=== PATIENT | female | born 1950 | race Caucasian/White ===

== ENCOUNTER → 2016-06-16 | Outpatient (CLI) | payer MEDICARE, BC ==
--- NOTE | 2016-06-19 11:56 | MM ---
Reason for exam: screening (asymptomatic). Last mammogram was performed 1 year and 4 months ago. History: Patient is postmenopausal and has history of other cancer at age 49. Took hormonal contraceptives for 7 years. Physical Findings: A clinical breast exam by your physician is recommended on an annual basis and results should be correlated with mammographic findings. MG 3D Screening Mammo W/Cad Bilateral CC and MLO view(s) were taken. Prior study comparison: March 01, 2015, bilateral MG 3d screening mammo w/cad. January 13, 2014, bilateral MG screening mammo w CAD. December 20, 2012, bilateral digital screening mammo w/CAD. The breast tissue is heterogeneously dense. This may lower the sensitivity of mammography. There is no discrete abnormality. ASSESSMENT: Negative, BI-RAD 1 RECOMMENDATION: Routine screening mammogram of both breasts in 1 year.
== END | disposition home or self-care (01) ==
LOC: RADMAMWWP 10:05
PROVIDERS: ATTEND Internal Medicine Geriatric Medicine
DX: Z12.31 Encounter for screening mammogram for malignant neoplasm of breast (principal)
CPT/HCPCS: 77063; G0202

== ENCOUNTER → 2018-03-14 | Outpatient (CLI) | payer MEDICARE, BC ==
--- NOTE | 2018-03-14 12:00 | BD ---
EXAMINATION TYPE: Axial Bone Density DATE OF EXAM: 03/14/2018 COMPARISON: NONE CLINICAL HISTORY: Height: 62 Weight: 148.8 FRAX RISK QUESTIONS: Alcohol (3 or more units per day): no Family History (Parent hip fracture): yes Glucocorticoids (More than 3mos): no (Ex: prednisone, prednisolone, methylprednisolone, dexamethasone, and hydrocortisone). History of Fracture in Adulthood: no Secondary Osteoporosis: 1. Type 1 Diabetes: no 2. Hyperthyroidism: no 3. Menopause before 45: no 4. Malnutrition: no 5. Chronic liver disease: no Rheumatoid Arthritis: no Current Tobacco Use: no RISK FACTORS HISTORY OF: History of Wrist Fracture: left wrist When: as a child Family History of Osteoporosis: no Active: yes Diet low in dairy products/other sources of calcium: yes Postmenopausal woman: age 55 Lost more than 2 inches in height since high school: no MEDICATIONS: lipitor Additional History: EXAM MEASUREMENTS: Bone mineral densitometry was performed using the [employer] System. Bone mineral density as measured about the Lumbar spine is: ----- L1-L4(G/cm2): 1.017 T Score Values are as follows: ----- L2: -2.2 ----- L3: -0.7 ----- L4: -1.0 ----- L1-L4: -1.4 Bone mineral density has: decreased -2.9 % since study of: 03.01.2015 Bone mineral density about the R hip (g/cm2): 0.860 Bone mineral density about the L hip (g/cm2): 0.890 T Score values are as follows: -----R Neck: -1.3 -----L Neck: -1.1 -----R Total: -1.1 -----L Total: -1.0 Bone mineral density has: decreased 2.5 % since study of: 03.01.2015 IMPRESSION: Osteopenia NOTE: T-SCORE=SD OF THE YOUNG ADULT MEAN.
--- NOTE | 2018-03-18 08:52 | MM ---
Reason for exam: screening (asymptomatic). Last mammogram was performed 1 year and 9 months ago. History: Patient is postmenopausal and has history of other cancer at age 49. Took hormonal contraceptives for 7 years. Physical Findings: A clinical breast exam by your physician is recommended on an annual basis and results should be correlated with mammographic findings. MG 3D Screening Mammo W/Cad Bilateral CC and MLO view(s) were taken. Prior study comparison: June 16, 2016, bilateral MG 3d screening mammo w/cad. March 01, 2015, bilateral MG 3d screening mammo w/cad. The breast tissue is heterogeneously dense. This may lower the sensitivity of mammography. There is no discrete abnormality. ASSESSMENT: Negative, BI-RAD 1 RECOMMENDATION: Routine screening mammogram of both breasts in 1 year.
== END ==
LOC: RADMAMWWP 09:41
PROVIDERS: ATTEND Obstetrics & Gynecology
DX: Z12.31 Encounter for screening mammogram for malignant neoplasm of breast (principal); M85.80 Other specified disorders of bone density and structure, unspecified site
CPT/HCPCS: 77063; 77067; 77080

== ENCOUNTER → 2019-07-01 | Outpatient (CLI) | payer MEDICARE, BC ==
--- NOTE | 2019-07-01 14:43 | XR ---
EXAMINATION TYPE: XR abdomen 1V DATE OF EXAM: 07/01/2019 COMPARISON: None HISTORY: Bilateral flank pain TECHNIQUE: One view abdominal series FINDINGS: The osseous structures are intact. The bowel gas pattern is nonspecific. Calcifications in the pelvi s are nonspecific but the larger 3 are most likely vascular. There is a 2 mm calcification near the e xpected location the right UVJ. Hypertrophic changes of the hips noted. Degenerative change lower lum bar spine. IMPRESSION: 1. Nonspecific abdomen. Possible distal right ureteral calculus measuring 2 mm correlate with noncon trast CT as clinically warranted.
== END | disposition home or self-care (01) ==
LOC: RADXRMAIN 13:18
PROVIDERS: ATTEND Internal Medicine Geriatric Medicine
DX: M54.9 Dorsalgia, unspecified (principal)
CPT/HCPCS: 74018

== ENCOUNTER → 2019-07-03 | Outpatient (CLI) | payer MEDICARE, BC ==
--- NOTE | 2019-07-07 08:22 | EST ---
EXERCISE STRESS AGE: 69 SEX: F HT: 63" WT: 145 PROTOCOL: Markell STAGE: 2 DURATION OF EXERCISE: 6 minutes. HEART RATE REST: 73 beats per minute. BLOOD PRESSURE REST: 170/93 mmHg. MAXIMUM HEART RATE ACHIEVED: 152 beats per minute. MAXIMUM BLOOD PRESSURE: 194/91 85% MPHR: 128 100% MPHR: 150 METS: 7-1 INDICATIONS: CLINICAL INFORMATION: Baseline heart rate 73 beats per minute. Baseline blood pressure 170/93 mmHg. Baseline 12-lead ECG shows normal sinus rhythm with very nonspecific 0.[address] depression. The patient exercised on a Markell protocol for 6 minutes, achieving a peak heart rate of 152 beats per minute. This is a hypertensive response to exercise. There was a 0.5 to [address] depression. Occasional PVCs noted. IMPRESSION: 1. Minimal ST-segment abnormalities during exercise stress test. 2. Limited exercise capacity. 3. Occasional PVCs. 4. Hypertensive response to exercise. MMCURRYL / IJN: [id number] /
== END | disposition home or self-care (01) ==
LOC: RADNMMAIN 08:27
PROVIDERS: ATTEND Internal Medicine Geriatric Medicine
DX: R94.39 Abnormal result of other cardiovascular function study (principal)
CPT/HCPCS: 93017

== ENCOUNTER → 2019-07-16 | Outpatient (CLI) | payer MEDICARE, BC ==
--- NOTE | 2019-07-17 09:13 | MM ---
Reason for exam: screening (asymptomatic). Last mammogram was performed 1 year and 4 months ago. History: Patient is postmenopausal and has history of other cancer at age 49. Took hormonal contraceptives for 7 years. Physical Findings: A clinical breast exam by your physician is recommended on an annual basis and results should be correlated with mammographic findings. MG 3D Screening Mammo W/Cad Bilateral CC and MLO view(s) were taken. Prior study comparison: March 14, 2018, bilateral MG 3d screening mammo w/cad. June 16, 2016, bilateral MG 3d screening mammo w/cad. No significant changes when compared with prior studies. ASSESSMENT: Negative, BI-RAD 1 RECOMMENDATION: Routine screening mammogram of both breasts in 1 year.
== END | disposition home or self-care (01) ==
LOC: RADMAMWWP 14:43
PROVIDERS: ATTEND Obstetrics & Gynecology
DX: Z12.31 Encounter for screening mammogram for malignant neoplasm of breast (principal)
CPT/HCPCS: 77063; 77067

== ENCOUNTER → 2019-07-16 | Outpatient (CLI) | payer MEDICARE, BC ==
--- NOTE | 2019-07-03 18:56 | P.STRESS ---
- Stress Test Note Stress Test Results/Findings: Exam Performed: Exam Date: Reason for Exam: Height: Weight: Protocol: Stage: Duration of Exercise: Resting Heart Rate: Resting Blood Pressure: Maximum Achieved Heart Rate: Maximum Achieved Blood Pressure: 85% PMHR: 100% PMHR: METS: Technologist Comment: Stress Test Results/Findings: Baseline 173 beats only Baseline blood pressure 170/93 mmHg Patient exercised on a Markell protocol for 6 minutes achieving a peak heart rate of 152 beats a minute. Hypertensive response to exercise Baseline 12-lead ECG showed sinus rhythm with normal ST segments There is no ECG is for ischemia No arrhythmias were noted Impression ALLERGY excess capacity without any evidence for ischemia or arrhythmias
--- NOTE | 2019-07-16 15:44 | US ---
EXAMINATION TYPE: US kidneys/renal and bladder DATE OF EXAM: 07/16/2019 COMPARISON: NONE CLINICAL HISTORY: M54.9 Back pain. pain EXAM MEASUREMENTS: Right Kidney: 8.8 x 4.2 x 3.9 cm Left Kidney: 9.5 x 4.8 x 4.6 cm Right Kidney: Complex area seen upper pole 1.8 x 1.2 x 1.6 cm. Left Kidney: 9.5 x 4.8 x 4.6 cm Bladder: Anechoic Bilateral Jets seen: Left jet identified only.. No hydronephrosis or nephrolithiasis. IMPRESSION: 1.8 cm complex lesion upper pole right kidney. CT scan is recommended
== END | disposition home or self-care (01) ==
LOC: RADUSWWP 14:41
PROVIDERS: ATTEND Internal Medicine Geriatric Medicine
DX: N28.89 Other specified disorders of kidney and ureter (principal); M54.9 Dorsalgia, unspecified
CPT/HCPCS: 76770

== ENCOUNTER → 2019-07-21 | Outpatient (CLI) | payer MEDICARE, BC ==
--- NOTE | 2019-07-21 10:02 | CT ---
EXAMINATION TYPE: CT abdomen w con DATE OF EXAM: 07/21/2019 HISTORY: abnormal ultrasound and xray, lt flank pain CT DLP: 362.5mGycm Automated Exposure Control for Dose Reduction was Utilized. CONTRAST: CT scan of the abdomen is performed with IV Contrast, patient injected with 100 mL of Isovue 300. COMPARISON: Renal ultrasound 5 days ago FINDINGS: LUNG BASES: Tiny pericardial effusion is seen. LIVER/GB: Posterior right hepatic dome has 1.6 x 1.4 cm heterogeneous lesion with rim enhancement lizeth t becomes more homogeneous and isodense to the hepatic veins on delayed phased images. Favor hemangio ma. Incompletely characterized on this study. There are several subcentimeter hypodense lesions scatt ered throughout the liver as well as a nonenhancing 1.9 cm thin-walled cyst lateral segment left hepa tic lobe axial image 19. PANCREAS: No significant abnormality is seen. SPLEEN: No significant abnormality is seen. ADRENALS: No significant abnormality is seen. KIDNEYS: Symmetric cortical medullary uptake and excretion from both kidneys without hydronephrosis s een bilaterally. There are a few scattered subcentimeter hypodense lesions throughout the left kidney too small to further characterize for presumed benign. Right kidney shows 1.3 x 1.0 cm simple appear ing thin-walled cyst laterally upper pole level axial series 8 image 26 and coronal series 10 image 8 0. There may be perhaps a few tiny thin septa based on ultrasound correlation that are not as well se en on CT. BOWEL: Oral contrast reaches the transverse colon level. No suspicious small or large bowel dilatatio n is present. Kdll-ob-ekwcyfpw wall thickening in the mid transverse colon is present. Cqbc-qu-noqgmr te fecal prominence in the left colon. Diverticula in the left lower quadrant near junction of left a nd sigmoid colon. LYMPH NODES: No greater than 1cm abdominal lymph nodes are appreciated. OSSEOUS STRUCTURES: Slight levoconvex scoliotic curvature. OTHER: Some narrowing of the celiac artery at its origin sagittal image 87 series 7 for reference but not greater than 50% diameter narrowing is felt present. IMPRESSION: 1. Corresponding to ultrasound there is slightly smaller 1.3 cm thin-walled cyst or cystic lesion, Sb sniak type II lesion on CT. No concerning solid or cystic renal mass in either kidney identified. 2. Ndfz-ii-prszwylb wall thickening mid transverse colon persists on delayed phase images with abrupt caliber change could reflect stricturing, correlate clinically. Consider follow-up colonoscopy to be tter evaluate it has not been performed in last 3 years. No suspicious bowel dilatation to suggest si gnificant obstruction noted. 3. Nonspecific rim-enhancing 1.6 cm posterior right hepatic dome lesion favor hemangioma. This can be better evaluated and characterized with liver protocol contrast-enhanced CT or MRI if desired based on clinical correlation. Correlating with old outside CT or MRI would be beneficial.
== END | disposition home or self-care (01) ==
LOC: RADCTMAIN 08:08
PROVIDERS: ATTEND Internal Medicine Geriatric Medicine
DX: K63.89 Other specified diseases of intestine (principal); K76.9 Liver disease, unspecified; D18.03 Hemangioma of intra-abdominal structures
CPT/HCPCS: 82565; 84520; 74160; 36415; Q9967

== ENCOUNTER 2019-10-22 11:25 | Day surgery (SDC) | payer MEDICARE, BC ==
[2019-10-17 12:27] VITALS: BMI 25.1
[~2019-10-22 11:25] MED LIST: LACTATED RINGERS 1,000 ML IV SCH; ONDANSETRON 4 MG/2 ML VIAL IVP PRN
[2019-10-22 12:25] VITALS: TEMP 98.5
[2019-10-22] MEDS ORDERED: PROPOFOL 10 MG/ML 20 ML VIAL IV ONE (12:46)
--- NOTE | 2019-10-22 13:09 | P.PCN ---
Date of Procedure: 10/22/19 Procedure(s) Performed: BRIEF HISTORY: Patient is a 69-year-old pleasant female scheduled for an elective colonoscopy as a part of evaluation of abnormal CAT scan that showed thickened colon. He denies any GI symptoms. PROCEDURE PERFORMED: Colonoscopy. PREOPERATIVE DIAGNOSIS: Abnormal CAT scan of the abdomen showing thickening:. IV sedation per Anesthesia. PROCEDURE: After informed consent was obtained, the patient, was brought into the endoscopy unit. IV sedation was administered by Anesthesia under continuous monitoring. Digital rectal examination was normal. Initially the Olympus CF-160 flexible video colonoscope was then inserted in the rectum, gradually advanced into the cecum without any difficulty. Careful examination was performed as the scope was gradually being withdrawn. Ileocecal valve and the appendiceal orifice were visualized and appeared normal. Prep was excellent. Mucosa of the cecum, ascending colon, transverse colon, descending colon, sigmoid colon, and rectum appeared normal. Moderate left-sided diverticulosis seen. Retroflexion was performed in the rectum and no lesions were seen. The patient tolerated the procedure well. IMPRESSION: Normal-appearing colon from rectum to cecum with no evidence of colorectal neoplasia. Moderate left-sided diverticulosis. RECOMMENDATIONS: Findings of this examination were discussed with the patient as well as a family. She was advised to be screening colonoscopy in 10 years.
[2019-10-22 13:10] VITALS: RESP 16
[2019-10-22 13:26] VITALS: BP 164/95; PULSE 70
== END 2019-10-22 13:49 ==
LOC: ORWHC2ENDO 11:25
PROVIDERS: ATTEND Internal Medicine Gastroenterology
DX: K57.30 Diverticulosis of large intestine without perforation or abscess without bleeding (principal); Z79.899 Other long term (current) drug therapy; E78.5 Hyperlipidemia, unspecified; Z88.0 Allergy status to penicillin
CPT/HCPCS: 45378; J2704

== ENCOUNTER → 2020-01-06 | Outpatient (CLI) | payer MEDICARE, BC ==
--- NOTE | 2020-01-06 11:41 | US ---
EXAMINATION TYPE: US kidneys/renal and bladder DATE OF EXAM: 01/06/2020 COMPARISON: CT 07/21/19, US 07/16/19 CLINICAL HISTORY: N28.89 DISORDER OF KIDNEYS. EXAM MEASUREMENTS: Right Kidney: 11.3 x 5.4 x 4.8 cm Left Kidney: 11.5 x 5.0 x 4.7 cm Post Void Residual Volume: 62.4 mL Right Kidney: No hydronephrosis.Area of previous complex hypoechoic nodule = 0.9 x 0.6 x 0.6 cm. Left Kidney: No hydronephrosis or masses seen, echogenic area, lower pole in cortex = 0.7 cm Bladder: wnl Bilateral Jets seen: Yes Normal Post Void Residual: No No hydronephrosis or nephrolithiasis. IMPRESSION: 1. Indeterminate bilateral renal lesions are somewhat complex and the right upper pole too small to c haracterize. Similar in appearance prior exam. Could represent a complicated cyst as previously descr ibed by CT scan. Previous CT scan suggested Bosniak 2 classification cyst. This is most likely etiolo gy. Suspect the lesion is benign. 2. There is no a 7 mm echogenic area lower pole left kidney could represent a tiny angiomyolipoma.
== END | disposition home or self-care (01) ==
LOC: RADUSWWP 10:54
PROVIDERS: ATTEND Internal Medicine Geriatric Medicine
DX: R93.422 Abnormal radiologic findings on diagnostic imaging of left kidney (principal)
CPT/HCPCS: 76770

== ENCOUNTER → 2021-07-08 | Outpatient (CLI) | payer MEDICARE, BC ==
--- NOTE | 2021-07-08 16:17 | BD ---
EXAMINATION TYPE: Axial Bone Density DATE OF EXAM: 07/08/2021 COMPARISON: NONE CLINICAL HISTORY: 71 years year old Female. ICD-10 CODE: M810 OSTEOPOROSIS Height: 63 Weight: 149.9 FRAX RISK QUESTIONS: Alcohol (3 or more units per day): no Family History (Parent hip fracture): no Glucocorticoids (More than 3mos): no (Ex: prednisone, prednisolone, methylprednisolone, dexamethasone, and hydrocortisone). History of Fracture in Adulthood: yes Secondary Osteoporosis: 1. Type 1 Diabetes: no 2. Hyperthyroidism: no 3. Menopause before 45: no 4. Malnutrition: no 5. Chronic liver disease: no Rheumatoid Arthritis: no Current Tobacco Use: no RISK FACTORS HISTORY OF: History of Wrist Fracture: left wrist When: as a child Surgery to Spine/Hip(right/left)/Wrist (right/left): no Family History of Osteoporosis: no Active: yes Diet low in dairy products/other sources of calcium: yes Postmenopausal woman: yes Lost more than 2 inches in height since high school: no MEDICATIONS: Additional History: EXAM MEASUREMENTS: Bone mineral densitometry was performed using the [employer]. Bone mineral density as measured about the Lumbar spine is: ----- L1-L4(G/cm2): 1.059 T Score Values are as follows: ----- L1: -2.5 ----- L2: -1.0 ----- L3: -0.4 ----- L4: -0.4 ----- L1-L4: -1.0 Bone mineral density has: increased 7.4 % since study of: 03.14.2018 Bone mineral density about the R hip (g/cm2): 0.853 Bone mineral density about the L hip (g/cm2): 0.804 T Score values are as follows: -----R Neck: -1.3 -----L Neck: -1.7 -----R Total: -1.4 -----L Total: -1.3 Bone mineral density has: decreased -3.7 % since study of: 03.14.2018 FRAX%s: The graph provided illustrates a 17.5% chance for a major osteoporotic fx and a 5.8% chance f or the hips probability for fx in 10 years time. IMPRESSION: Osteopenia (T Score between -2.5 and -1). There is slightly increased risk of fracture and the patient may be considered for treatment. Re-Screen 2-5 years. NOTE: T-SCORE=SD OF THE YOUNG ADULT MEAN.
--- NOTE | 2021-07-11 11:18 | MM ---
Reason for Exam: Screening (asymptomatic). Last mammogram was performed 2 year(s) and 0 month(s) ago. Patient History: Menarche at age 10. First Full-Term at age 24. Postmenopausal. Other cancer, age 49. Patient used Hormonal Contraceptives for 7 years. Risk Values: Ayana 5 year model risk: 2.1%. NCI Lifetime model risk: 5.6%. Prior Study Comparison: 06/16/2016 Bilateral Screening Mammogram, [facility]. 03/14/2018 Bilateral Screening Mammogram, [facility]. 07/16/2019 Bilateral Screening Mammogram, [facility]. Tissue Density: The breast tissue is heterogeneously dense. This may lower the sensitivity of mammography. Findings: Analyzed By CAD. There is no suspicious group of microcalcifications or new suspicious mass in either breast. Overall Assessment: Benign, BI-RAD 2 Management: Screening Mammogram of both breasts in 1 year. A clinical breast exam by your physician is recommended on an annual basis and results should be correlated with mammographic findings. Electronically signed and approved by: Andrey Gonzalez M.D. Radiologis
== END | disposition home or self-care (01) ==
LOC: RADMAMWWP 14:32
PROVIDERS: ATTEND Internal Medicine Geriatric Medicine
DX: Z12.31 Encounter for screening mammogram for malignant neoplasm of breast (principal); M81.0 Age-related osteoporosis without current pathological fracture
CPT/HCPCS: 77063; 77067; 77080

== ENCOUNTER → 2022-09-28 | Outpatient (CLI) | payer MEDICARE, BC ==
--- NOTE | 2022-09-29 10:03 | MM ---
Reason for Exam: Screening (asymptomatic). Last mammogram was performed 1 year(s) and 2 month(s) ago. Patient History: Menarche at age 10. First Full-Term at age 24. Postmenopausal. Other cancer, age 49. Patient used Hormonal Contraceptives for 7 years. Risk Values: Ayana 5 year model risk: 2.2%. NCI Lifetime model risk: 5.3%. Prior Study Comparison: 03/14/2018 Bilateral Screening Mammogram, [facility]. 07/16/2019 Bilateral Screening Mammogram, [facility]. 07/08/2021 Bilateral MG 3D screening mammo w/cad, [facility]. Tissue Density: The breast tissue is heterogeneously dense. This may lower the sensitivity of mammography. Findings: Analyzed By CAD. There is no suspicious group of microcalcifications or new suspicious mass in either breast. Overall Assessment: Negative, BI-RAD 1 Management: Screening Mammogram of both breasts in 1 year. . Patient should continue monthly self-breast exams. A clinical breast exam by your physician is recommended on an annual basis. This exam should not preclude additional follow-up of suspicious palpable abnormalities. Note on Ayana scores and lifetime risk: 1. A Ayana score greater than 3% is considered moderate risk. If this is the case, consider specialist referral to assess eligibility for a risk reducing agent. 2. If overall lifetime risk for the development of breast cancer is 20% or higher, the patient may qualify for future screening with alternating mammogram and breast MRI. Electronically signed and approved by: Bethanie Child M.D. Radiologist
== END | disposition home or self-care (01) ==
LOC: RADMAMWWP 13:57
PROVIDERS: ATTEND Internal Medicine Geriatric Medicine
DX: Z12.31 Encounter for screening mammogram for malignant neoplasm of breast (principal); Z78.0 Asymptomatic menopausal state
CPT/HCPCS: 77063; 77067